=== PATIENT | male | born 1960 | race Caucasian/White ===

== ENCOUNTER 2019-03-26 08:29 | Emergency (ER) | payer BC ==
[~2019-03-26] VITALS: Ht 182.9 cm; Wt 90.3 kg
--- NOTE | 2019-03-26 08:47 | NUR ---
called cardio [phone]
[2019-03-26] MEDS ORDERED: NITROGLYCERIN 0.4 MG/TAB BOTTLE ONE (08:48)
[2019-03-26] MEDS ORDERED: MORPHINE SULFATE INJ 4 MG/ML DISP.SYRIN ONE ×2 (08:48→09:54)
[2019-03-26] MEDS ORDERED: ASPIRIN 325 MG TABLET ONE (08:48)
[2019-03-26] MEDS ORDERED: ONDANSETRON HCL/PF 4 MG/2 ML VIAL ONE (08:49)
[2019-03-26 08:57] LABS: BASOPHILS # (AUTO) 0.1 /CMM (0.0-0.2); BASOPHILS % (AUTO) 1.2 % (0.0-2.0); EOSINOPHILS % (AUTO) 3.5 % (0.0-6.0); HEMATOCRIT 49 % (39-51); HEMOGLOBIN 16.7 g/dL (13.5-17.5); LYMPHOCYTES # (AUTO) 2.4 /CMM (0.8-4.8); LYMPHOCYTES % (AUTO) 41.7 % (20.0-44.0); MEAN CORPUSCULAR HGB CONC 34 g/dl (31.0-36.0); MEAN CORPUSCULAR VOLUME 83 fL (80-96); MONOCYTES # (AUTO) 0.6 /CMM (0.1-1.30); NEUTROPHILS # (AUTO) 2.4 /CMM (1.8-8.9); NEUTROPHILS % (AUTO) 42.6 % (43.0-81.0); PLATELET COUNT (AUTO) 228 /CMM (150-450); RED BLOOD CELL COUNT(AUTO) 5.87 MIL/uL (4.5-6.0); WHITE BLOOD COUNT (AUTO) 5.7 K/uL (4.3-11.0)
[2019-03-26] MEDS ORDERED: ASPIRIN 325 MG TABLET PO ONE (09:00)
[2019-03-26] MEDS ORDERED: MORPHINE SULFATE INJ 2 MG/ML DISP.SYRIN IV ONE ×2 (09:00→10:00)
[2019-03-26] MEDS ORDERED: ONDANSETRON HCL/PF 4 MG/2 ML VIAL IVP ONE (09:00)
[2019-03-26] MEDS ORDERED: NITROGLYCERIN 0.4 MG/TAB BOTTLE SL ONE (09:00)
[2019-03-26 09:02] LABS: CALCIUM, SERUM 9.1 mg/dL (8.5-10.1); POTASSIUM 4.2 mmol/L (3.5-5.1)
--- NOTE | 2019-03-26 09:07 | NUR ---
BIB SPOUSE C/O ACROSS CP RADIATING TO LT ARM "SHARP" STARTED AROUND 0815. DENIES SOB, DIZZINESS, N/V AT THIS TIME. PT AAOX4, VSS. PT SEEN & EVAL'D BY DR. CHAVARRIA. MEDICATED PER ERMD ORDER. PT GERSON WELL. PLACED ON TIMBER MANAGEMENT ASSISTANT, NSR. @ BS & WILL CONT TO MONITOR. +
--- NOTE | 2019-03-26 09:09 | NUR ---
called [facility] [phone] faxing over facesheet and ekg to them and waiting to get call back.
[2019-03-26] MEDS ORDERED: IOHEXOL-350 100 ML VIAL IV ONE (09:17)
--- NOTE | 2019-03-26 09:21 | NUR ---
PT TO CT VIA [facility].
[2019-03-26] MEDS ORDERED: IV NS 0.9% 1,000 ML BAG IV ONE (09:30)
--- NOTE | 2019-03-26 09:33 | NUR ---
[facility] CALLED AGAIN AND SPOKE WITH ADRIANA CALDERON,STILL PAGING DR FLORENCE
--- NOTE | 2019-03-26 09:38 | NUR ---
PT BACK FROM CT. PT STILL C/O YEIMI " PRESSURE" CP 01/17, ERMD AWARE. DENIES SOB, DIZZINESS, RUSSO, N/V, ARM/JAW PAIN @ THIS TIME. NSR, VSS. WILL CONT TO MONITOR.
[2019-03-26] MEDS ORDERED: HEPARIN SODIUM, PORCINE 5000 UNITS/1 ML VIAL IV ONE (10:00)
[2019-03-26] MEDS ORDERED: HEPARIN INFUSION/D5W 500 ML IV ONE ×2 (10:00→10:06)
--- NOTE | 2019-03-26 10:09 | NUR ---
[facility] CALLED,SPOKE WITH GEORGETTE CALDERON, THEY GOT A HOLD OF THEIR SOCIAL HUMAN SERVICES ASSISTANTS, DR CALLE, WHO WILL GIVE US A CALL
[2019-03-26] MEDS ORDERED: HEPARIN SODIUM, PORCINE 5000 UNITS/1 ML VIAL ONE (10:11)
--- NOTE | 2019-03-26 10:27 | NUR ---
ADDENDUM: Intravenous End Time Documentation: Heparin Infusion (25,000/D5W 500 ml) start time:1027 AM : end time: 1138 am; infusing during transfer to another acute facility via [facility] - Heparin drion at 27 ml/hour rate
--- NOTE | 2019-03-26 10:27 | NUR ---
GIVEN 5000 UNITS/1ML OF HEPARIN PER ERMD ORDER, PT GERSON WELL.
--- NOTE | 2019-03-26 10:55 | NUR ---
PT STABLE, VSS, C/O CP 11/19 " ALMOST GONE ". DENIES SOB, DIZZINESS, N/V, RUSSO, NECK/ARM/JAW PAIN @ THIS TIME. RR EVEN & UNLABORED. AWAITING TRANSFER TO [facility]IA [facility]. WILL CONT TO MONITOR. @ BS.
--- NOTE | 2019-03-26 11:36 | NUR ---
REPORT GIVEN TO DUARTE CALDERON, [facility] [place], FOR [facility]
[2019-03-26 11:37] VITALS: BP 101/71
== END 2019-03-26 11:44 ==
LOC: ER 08:31
DX: I21.4 Non-ST elevation (NSTEMI) myocardial infarction (principal); I24.9 Acute ischemic heart disease, unspecified; E78.5 Hyperlipidemia, unspecified; F17.200 Nicotine dependence, unspecified, uncomplicated
CPT/HCPCS: 36415; 71045; 71275; 80048; 84484; 85025; 85730; 93005 ×3; 96361; 96365; 96375; 96376; 99291; J1644 ×2; J2270 ×2; J2405; J7030; Q9967